=== PATIENT | male | born 1980 | race Hispanic/Latino ===

== ENCOUNTER 2018-04-03 13:58 | Outpatient (CLI) | payer OTHER ==
--- NOTE | 2018-04-03 16:06 | RAD ---
RADIOGRAPH CHEST 2 VIEWS: 04/03/18 HISTORY: 37-year-old male with lower respiratory tract infection. FINDINGS: There is no air space density, pulmonary edema, pleural effusion, pneumothorax, or cardiomegaly. IMPRESSION: No acute cardiopulmonary findings. jn [] POS: BIJAL
== END 2018-04-03 13:59 | disposition home or self-care (01) ==
LOC: RAD 13:58
PROVIDERS: ATTEND Nurse Practitioner Family
DX: J22 Unspecified acute lower respiratory infection (principal)
CPT/HCPCS: 71046